=== PATIENT | female | born 1995 | race Caucasian/White ===

== ENCOUNTER 2021-11-10 20:44 | Inpatient (IN) | payer OTHER ==
[~2021-11-10] VITALS: Ht 165.1 cm; Wt 83.9 kg
[2021-11-10 21:15] LABS: BILIRUBIN NEGATIVE (NEGATIVE); BLOOD TRACE-INTACT Ery/uL (NEGATIVE); CLARITY CLEAR (CLEAR); COLOR YELLOW (YELLOW); GLUCOSE (U) NORMAL (NORMAL); LEUKOCYTES NEGATIVE Leu/uL (NEGATIVE); NITRITE NEGATIVE (NEGATIVE); PROTEIN NEGATIVE (NEGATIVE); SPECIFIC GRAVITY 1.015 (1.001-1.030); UROBILINOGEN 0.2 mg/dL (0.2-1.0)
[2021-11-10 21:21] LABS: BACTERIA TRACE; URINARY WBC RARE
[2021-11-10 22:10] LABS: HCT 36.1 % (37.0-47.0); HGB 12.2 g/dl (12.5-16.0); MCH 28.6 pg (25.0-31.0); MCHC 33.8 g/dL (32.0-36.0); MCV 84.7 fL (78.0-100.0); MPV 10.1 fL (6.0-9.5); RBC 4.26 M/uL (4.20-5.40); RDW 13.2 % (11.5-14.0); WBC 12.3 K/uL (4.0-10.5)
[2021-11-12 06:29] LABS: HGB 10.9 g/dl (12.5-16.0); MCH 29.2 pg (25.0-31.0); MCHC 34.1 g/dL (32.0-36.0); MCV 85.8 fL (78.0-100.0); MPV 9.3 fL (6.0-9.5); RBC 3.73 M/uL (4.20-5.40); RDW 13.3 % (11.5-14.0); WBC 14.4 K/uL (4.0-10.5)
[2021-11-13] MEDS ORDERED: IBUPROFEN800 MG PO (08:56)
[2021-11-13] MEDS ORDERED: COLACE100 MG PO (08:57)
== END 2021-11-13 12:12 | disposition home or self-care (01) | DRG 807 ==
LOC: FOB 20:44
PROVIDERS: Specialist; ADMIT Obstetrics & Gynecology
PROC: 10E0XZZ Delivery of Products of Conception, External Approach (ICD-10-PCS; principal; 2021-11-11)
PROC: 0HQ9XZZ Repair Perineum Skin, External Approach (ICD-10-PCS; 2021-11-11)
DX: O42.02 Full-term premature rupture of membranes, onset of labor within 24 hours of rupture (principal); Z37.0 Single live birth; Z3A.40 40 weeks gestation of pregnancy; Z20.822 Contact with and (suspected) exposure to COVID-19; O70.0 First degree perineal laceration during delivery
CPT/HCPCS: 36415; 81001; 84112; 86850; 86900; 86901; J2001; J7120; U0002